=== PATIENT | male | born 1965 | race Caucasian/White ===

== ENCOUNTER → 2021-03-22 | Outpatient (CLI) | payer MEDICARE, OTHER ==
[2021-01-16 11:00] VITALS: BP 100/63
[~2021-03-22] MED LIST: ACET500T68 PO; BUSP15TA PO; DICY20TA3 PO; HYDR12.58 PO; LISI20TA18 PO; OXCA600T9 PO; PROM25TA10 PO; RISP1TAB88 PO
--- NOTE | 2021-03-22 12:04 | RAD ---
EXAM: Head CT without contrast. HISTORY: Behavioral change. TECHNIQUE: Computed tomographic images of the head were obtained without contrast. *One or more of the following individualized dose reduction techniques were utilized for this examina tion: 1. Automated exposure control. 2. Adjustment of the mA and/or kV according to patient size. 3. Use of iterative reconstruction technique. COMPARISON: None. FINDINGS: There is no acute or subacute extra-axial or intraparenchymal hemorrhage. There is no mass effect or midline shift. There is no hydrocephalus. There are areas of decreased attenuation within the cerebral white matter, nonspecific and likely rel ated to chronic small vessel disease. There is paranasal sinus mucosal thickening. There is a right maxillary sinus mucous tension cyst. Th e orbits are unremarkable. There is minimal bilateral mastoid fluid. There is no suspicious calvarial lesion. IMPRESSION: 1. No acute intracranial finding. MRI is more sensitive for acute infarction. 2. Bilateral cerebral white matter changes, most commonly due to chronic small vessel disease. Electronically signed by: Antonella Jessica MD (03/22/2021 12:02 PM) [id number]
== END ==
LOC: CT 11:49
PROVIDERS: ATTEND Family Medicine
DX: I63.9 Cerebral infarction, unspecified (principal); I73.9 Peripheral vascular disease, unspecified; R46.89 Other symptoms and signs involving appearance and behavior
CPT/HCPCS: 70450